=== PATIENT | male | born 1955 | race Caucasian/White ===

== ENCOUNTER 2016-07-11 03:32 | Inpatient (IN) | payer OTHER ==
[~2016-07-11] VITALS: Ht 190.5 cm; Wt 132.4 kg
[~2016-07-11 03:32] MED LIST: BENICAR40 M1 PO
[2016-07-11] MEDS ORDERED: COLACE100 M1 PO (10:56)
[2016-07-11] MEDS ORDERED: MIRALAX17 G1 PO (10:56)
[2016-07-11] MEDS ORDERED: ASPIRIN EC325 M2 PO (10:56)
[2016-07-11] MEDS ORDERED: PRILOSEC OTC20 M1 PO (10:56)
[2016-07-11] MEDS ORDERED: MS CONTIN30 M1 PO (10:56)
[2016-07-11] MEDS ORDERED: DILAUDID2 M1 PO (10:56)
--- NOTE | 2016-07-11 11:03 | Patient Discharge Instructions ---
Discharge Instructions General Discharge Information You were seen/treated for: Right hip pain secondary to osteoarthritis You had these procedures: Right total hip replacement Watch for these problems: Increasing pain despite the use of pain medication. Increasing redness, warmth, swelling. Drainage of any type from incision. Inability to bear weight on right leg. Persistent nausea and vomitting. Fever greater than 101.5 degrees. Do not soak the wound: Yes No bath, but you may shower: Yes Other wound care: Keep wound clean and dry. No ointments of any type on or near incision at any time. No exceptions. Dressing will be changed on the second day following your surgery. Daily dry dressing changes recommended thereafter. Special Instructions: Aspirin: Aspirin 325 mg is to be taken twice daily for four weeks to protect you from the development of blood clots. Please take this with food. Also, please take prilosec daily to help protect your stomach lining while on aspirin. Constipation: Pain medication can be very constipating. Please be sure that you are taking colace and miralax as directed and that you are moving your bowels. If you develop diarrhea, you may stop taking the medications. If you are unable to pass gas or move your bowels, please contact your dr or visit the emergency room. Diet Continue normal diet: Yes Recommended Diet: Regular Additional DIET Information: Advance as tolearated Activity Full Activity/No Limits: No Activity Self Limited: Yes Pounds, do NOT lift more than: 10 Activity Limited to: Weight bear as tolerated Acute Coronary Syndrome Inclusion Criteria At DC or during hospital stay patient has or had the following: ACS DIAGNOSIS No Discharge Core Measures Meds if any: Prescribed or Continued at Discharge Meds if any: NOT Prescribed or Continued at Discharge Congestive Heart Failure Inclusion Criteria At DC or during hospital stay patient has or had the following: CHF DIAGNOSIS No Discharge Core Measures Meds if any: Prescribed or Continued at Discharge Meds if any: NOT Prescribed or Continued at Discharge Cerebrovascular accident Inclusion Criteria At DC or during hospital stay patient has or had the following: CVA/TIA Diagnosis No Discharge Core Measures Meds if any: Prescribed or Continued at Discharge Meds if any: NOT Prescribed or Continued at Discharge Venous thromboembolism Inclusion Criteria VTE Diagnosis No VTE Type NONE VTE Confirmed by (Test) NONE Discharge Core Measures - Per Current guidelines, there needs to be overlap - treatment for the first 5 days of Warfarin therapy. - If discharged on Warfarin prior to 5 days of - overlap therapy, the patient will need to be - assessed for post discharge needs including - *Post discharge parental anticoagulation - *Warfarin and/or parental anticoagulation education - *Follow up date to check INR post discharge At least 5 days overlap therapy as Inpatient No Meds if any: Prescribed or Continued at Discharge Note: Overlap Therapy is Warfarin and Anticoagulant Meds if any: NOT Prescribed or Continued at Discharge
--- NOTE | 2016-07-11 11:04 | Admission Core Measures ---
Admission Meds I reviewed the following Meds: Current Medications Sig/Chelsea Start time Last Medication Dose Stop Time Status Admin Acetaminophen 975 MG ONCE 07/11 0000 NR (Tylenol) 07/11 2358 Cefazolin Sodium 3,000 MG ONCE 07/11 0000 NR (Kefzol-Ancef Inj) 07/11 2358 Losartan Potassium 100 MG DAILY 07/11 1000 AC (Cozaar) Oxycodone HCl 10 MG ONCE 07/11 0000 NR (Roxicodone) 07/11 2358 Acute Coronary Syndrome Inclusion Criteria ACS Diagnosis No Inpatient Core Measures LDL Reminder: If No, please order W/I first 24hr of stay Congestive Heart Failure Inclusion Criteria CHF Diagnosis No Cerebrovascular accident Inclusion Criteria CVA/TIA Diagnosis No Inpatient Core Measures Bedside Swallow Eval Reminder: If BSE failed, place ST order Antithrombotic Reminder: Order Antithrombotic Medication by end of day 2 Antithrombotic Reminder: Document Reason Antithrombotic Not ordered by end of day 2 AFIB/Flutter Reminder: If Present, add to problem list AFIB/Flutter Reminder: Order Anticoag Medication for pts with AFIB/Flutter Atherosclerosis Reminder: If Present, add to problem list LDL Reminder: If No, please order W/I first 24hr of stay PT Order Reminder: If No, please order Venous thromboembolism Inpatient Core Measures VTE Risk Factors: Age > 40, Surgery No [facility] VTE prophylaxis d/t No contraindications No VTE Pharm Prophylaxis d/t No contraindications Inclusion Criteria - Per Current guidelines, there needs to be overlap - treatment for the first 5 days of Warfarin therapy. - Parenteral Anticoagulation (IV or SC) needs to be - given along with Warfarin therapy. VTE Diagnosis No VTE Type NONE VTE Confirmed by (Test) NONE Problem List As ranked by this Provider includes Assessment & Plan 1. Unilateral primary osteoarthritis, right hip HOME MEDS Home Med List Aspirin (Ecotrin*) 325 MG TABLET.DR 1 TAB PO BID ANTICOAGULATION Docusate Sodium (Colace) 100 MG CAPSULE 1 CAP PO BID CONSITPATION Hydromorphone HCl (Dilaudid) 2 MG TABLET 1-2 TAB PO Q4-6 PRN PAIN Morphine Sulfate (Ms Contin) 30 MG TABLET.ER 1 TAB PO BID PAIN Olmesartan Medoxomil (Benicar) 40 MG TABLET 1 TAB PO DAILY HTN (Reported) Omeprazole Magnesium (Prilosec Otc) 20 MG TABLET.DR 1 TAB PO DAILY GI PROTECTION Polyethylene Glycol 3350 (Miralax) 17 GRAM POWD.PACK 1 PAC PO DAILY CONSTIPATION
--- NOTE | 2016-07-11 11:08 | Surgical Discharge Summary ---
Visit Information Visit Dates Admission Date: 07/11/16 Discharge Date: 07/12/2016 History of Present Illness Chief Complaint: Right hip pain related to osteoarthritis Surgical History Pertinent Surgical History: non-contributory Review of Systems: See H&P Hospital Course Course Attending Physician: KASHMIR MARTINEZ MD Primary Care Physician: YASH ROSENTHAL,DONNA Shah III Hospital Course: 07/11/2016 admitted to hospital for an elective right total hip replacement. Tolerated procedure well and was transferred to general surgical floor. There, his vital signs remained stable and within normal limits and his neurovascular status remained intact. His diet was advanced and tolerated. He voided spontaneously. His pain was adequately controlled with po pain medication. He was evaluated and treated by physical therapy and deemed appropriate for discharge. Allergies: Coded Allergies: No Known Allergies (07/09/16) Disposition Summary Disposition Principal Diagnosis: Right hip unilateral primary osteoarthritis Additional Diagnosis: none Discharge Disposition: home health services Discharge Instructions General Discharge Information Code Status: Full Code Patient's Diet: Regular, advance as tolerated Patient's Activity: wbat Follow-Up Instructions/Appts: 6 weeks from date of surgery with Dr. Martinez Medications at Discharge Discharge Medications: Continue taking these medications: Olmesartan Medoxomil (Benicar) 40 MG TABLET 1 Tablet ORAL DAILY Start taking the following new medications: Aspirin (Ecotrin*) 325 MG TABLET.DR 1 Tablet ORAL TWICE DAILY Qty = 60 No Refills Docusate Sodium (Colace) 100 MG CAPSULE 1 Capsule ORAL TWICE DAILY Qty = 14 No Refills Instructions: DISCONTINUE USE IF YOU DEVELOP LOOSE STOOL OR DIARRHEA Polyethylene Glycol 3350 (Miralax) 17 GRAM POWD.PACK 1 Packet ORAL DAILY Qty = 7 No Refills Instructions: dissolve in water, DISCONTINUE USE IF YOU DEVELOP LOOSE STOOL OR DIARRHEA Hydromorphone HCl (Dilaudid) 2 MG TABLET 1-2 Tablet ORAL EVERY 4-6 HOURS as needed for PAIN Qty = 36 No Refills Morphine Sulfate (Ms Contin) 30 MG TABLET.ER 1 Tablet ORAL TWICE DAILY Qty = 6 No Refills Omeprazole Magnesium (Prilosec Otc) 20 MG TABLET.DR 1 Tablet ORAL DAILY Qty = 30 No Refills
--- NOTE | 2016-07-11 13:04 | RADIOLOGY REPORT ---
EXAMINATION: XR HIP, RIGHT CLINICAL INFORMATION: Status post total hip arthroplasty. COMPARISON: None TECHNIQUE: Two views of the right hip. FINDINGS: There are postoperative changes with metallic acetabular and femoral components a single overlying soft tissue drain laterally without evidence of immediate complication or hardware failure. IMPRESSION: Postoperative changes.
[2016-07-11 14:00] VITALS: BP 122/80
--- NOTE | 2016-07-11 14:07 | PN- Orthopedic ---
Subjective Subjective: The patient was seen this afternoon postoperatively. He reports that his pain is under adequate control and has no other complaints at the current time. He has no chest pain or difficulty breathing and is eager to work with physical therapy. Objective Vital Signs and I&Os Vital signs: Blood pressure 118/68, pulse 65, temperature 97.3, O2 saturation 99 % on room air I's and O's: 2000 ML's in of lactated Ringer's/patient has yet to void/VALDEMAR 60/EBL 500 Physical Exam: Gen.: Alert and in no obvious distress Skin: Warm and dry Cardiac: S1-S2 regular Pulmonary: Bilateral breath sounds are equal good exchange Extremities: Bilateral lower extremities are warm without calf tenderness or significant edema. Gross motor and sensory are intact. Right hip surgical dressing is slightly blood tinged but otherwise intact. There is a Hemovac 1 holding suction with dark sanguinous drainage in the bulb Assessment/Plan Assessment/Plan Assessment: 61-year-old male status post right total hip arthroplasty. Postoperative the patient is progressing as expected and his pain is under adequate control. Plan: Out of bed with physical therapy Gentle IV hydration and advance diet as tolerated Continue current pain regiment GI and DVT prophylaxis with first dose of aspirin tonight 2 doses of postoperative prophylactic antibiotics Strict I's and O's and monitor for postoperative void Keep Hemovac to self suction Follow-up morning laboratory studies Resume home medications Core Measures/Miscellaneous Venous Thromboembolism VTE Risk Factors: Age > 40, Surgery VTE Contraindications: No Contraindications VTE Diagnosis: No VTE Type: NONE VTE Confirmed by (Test): NONE Beta Ceci Is Beta Ceci a Home Med? No Antibiotics Is Patient on Antibiotics? Yes If Yes: prophylaxis
--- NOTE | 2016-07-11 15:58 | NUR ---
1400- PT ARRIVED TO FLOOR VIA STRETCHER FROM PACU. PHYSICAL THERAPY AMBULATED PT FROM STRETCHER TO ROOM WITH RW. PT AMBULATED WELL WITH PHY THERAPY. A/V/OX3. DRESSING TO R HIP C,D,I. + PULSES TO R LE. HEMOVAC IN PLACE TO R HIP DRAINING BLOODY DRAINAGE. VSS. ORIENTED TO ROOM AND CALL LIGHT FOR ASSIST.
[2016-07-11 16:04] VITALS: BP 122/80
[2016-07-11 17:54] VITALS: BP 124/64
--- NOTE | 2016-07-11 17:55 | Operative Report ---
Operative/Inv Procedure Report Surgery Date: 07/11/16 Name of Procedure: Right total hip replacement Pre-Operative Diagnosis: Primary right hip DJD Post-Operative Diagnosis: Same Estimated Blood Loss: 500 Surgeon/Parole Supervisor: MICHELLE ROSENTHAL,KASHMIR Dos Santos Anesthesia: block Operative/Procedure Note Note: Description of Procedure: The patient was taken to the operating room and positively identified. After induction of spinal anesthesia and administration of appropriate pre-operative antibiotics, the patient was positioned supine on the operating room table and all bony prominences were well padded. After performing a surgical timeout, the right lower extremity was prepped and draped in the usual sterile fashion. A direct anterior approach was made to the right hip. The incision was carried sharply through superficial soft tissues to the level of the fascia. Meticulous hemostasis was maintained with Bovie electocautery. The fascia over the tensor fascia darrell muscle was opened sharply and the interval between the TFL and the sartorius was entered bluntly taking care to stay lateral to the lateral femoral cutaneous nerve. Retractors were placed around the femoral neck and the pericapsular fat was identified. The ascending branches of the lateral femoral circumflex vessels were identified and carefully coagulated. The pericapsular fat and anterior capsule were then resected. A napkin ring osteotomy was performed and the femoral head was removed without difficulty. Attention was then turned to the acetabulum. After appropriate placement of retractors, the acetabulum was exposed. Soft tissue was cleaned from the acetabular margin and notch. Overhanging osteophytes were removed and the teardrop was exposed. The acetabulum was then sequentially reamed to accept a 64 mm Karin Tritanium hemispherical solid back shell. This was impacted into place in the appropriate position and fitted with a 36 mm Trident X3 zero degree polyethylene insert. Attention was then turned to the femur. After performing the appropriate ligament releases, the proximal femur was exposed. It was then sequentially broached to accept a size 7 Rochelle accolade 2 stem. This was trialed for leg length and stability. The trial component was removed and the final component was impacted into place. The trunnion was carefully cleaned and fit with a 36 mm, +5 Biolox delta ceramic femoral head. The hip was reduced and put through a full range of motion and found to be stable. The articular space was then irrigated with sterile saline. The periarticular soft tissues were infilitrated with Marcaine. The fascial layer was closed with interrupted #1 vicryl suture and the skin was re-approximated with interrupted 2 -0 vicryl. The skin was closed with a running 3-0 V-Lock suture. Steri-strips and a sterile dressing were applied. The patient was awakened and taken to the recovery room in satisfactory condition.
[2016-07-11 20:08] VITALS: BP 120/80
[2016-07-12 00:40] VITALS: BP 128/78
[2016-07-12 04:23] VITALS: BP 130/70
--- NOTE | 2016-07-12 07:21 | PN- Orthopedic ---
Subjective Subjective: Awake, alert oomplaining of pain with ambulation - tolerable with meds voiding without difficulty Tolerating diet Objective Vital Signs and I&Os Vital Signs Date Time Temp Pulse Resp B/P B/P Pulse O2 O2 Flow FiO2 Mean Ox Delivery Rate 07/12 0423 98.7 74 20 130/70 95 Room Air 07/12 0040 98.2 67 20 128/78 96 Room Air 07/12 2007 98.4 82 20 120/80 94 Room Air 07/11 1754 98.1 79 20 124/64 93 Room Air 07/11 1604 97.9 77 20 122/80 96 Room Air 07/11 1400 98.4 64 18 122/80 98 Room Air Intake & Output 07/12 0807/12 0000 07/11 1600 07/11 0807/11 0000 07/10 1600 Intake Total 1300 Output Total 1430 Balance -130 Intake, IV 600 Intake, Oral 700 Output, 250 Drainage Output, Urine 1180 Patient 292 lb Weight Physical Exam: vss, afebrile General: alert and oriented times three Chest: clear anteriorly bilaterally, RRR Abd: soft, good bs Ext: warm, no edema, positive sensate, no calf tenderness Wound: dressed, dry hemovac removed - slight oozing behind the drain. Assessment/Plan Assessment/Plan 61yo male pod 1 s/p R THR PT - wbat asa 325mg po bid for dvt ppx pain mgmt dc later if cleared by PT Core Measures/Miscellaneous Venous Thromboembolism VTE Risk Factors: Age > 40, Surgery VTE Contraindications: No Contraindications VTE Diagnosis: No VTE Type: NONE VTE Confirmed by (Test): NONE Beta Ceci Is Beta Ceci a Home Med? No Antibiotics Is Patient on Antibiotics? Yes If Yes: prophylaxis
[2016-07-12 07:59] VITALS: BP 120/60
[2016-07-12 08:34] LABS: ABSOLUTE BASOPHIL COUNT 0 /CUMM (0.0-0.2); ABSOLUTE EOSINOPHIL COUNT 0 /CUMM (0.0-0.7); ABSOLUTE GRANULOCYTE CT 8.4 /CUMM (1.4-6.5); ABSOLUTE LYMPH COUNT 1.1 /CUMM (1.2-3.4); ABSOLUTE MONOCYTE COUNT 1.1 /CUMM (0.10-0.60); BASOPHIL % 0.2 % (0.0-2.0); EOSINOPHIL % 0.1 % (0-5); GRANULOCYTE % 79.6 % (42.2-75.2); MEAN CORPUSCULAR VOLUME 91.2 FL (80.0-94.0); MEAN PLATELET VOLUME 7.9 FL (7.4-10.4); PLATELET COUNT 171 /CUMM (130-400); RBC DISTRIBUTION WIDTH 13.3 % (11.5-14.5); RED BLOOD CELL CT 3.83 /CUMM (4.70-6.10); WHITE BLOOD CELL COUNT 10.6 /CUMM (4.8-10.8)
[2016-07-12 12:06] VITALS: BP 130/60
== END 2016-07-12 14:09 | disposition home health service (06) | DRG 470 ==
LOC: SDA 03:32 → ENRESERV 12:20 → 2NA 13:55 → ENPENDDIS 07-12 10:47 → 2NA 07-12 14:09
PROVIDERS: Nurse Practitioner; ADMIT Orthopaedic Surgery
PROC: 0SR904A Replacement of Right Hip Joint with Ceramic on Polyethylene Synthetic Substitute, Uncemented, Open Approach (ICD-10-PCS; principal; 2016-07-11)
DX: M16.11 Unilateral primary osteoarthritis, right hip (principal); E66.9 Obesity, unspecified; I10 Essential (primary) hypertension; Z68.36 Body mass index [BMI] 36.0-36.9, adult; G47.33 Obstructive sleep apnea (adult) (pediatric)
CPT/HCPCS: 2NAP; 73502-RT; 82436; 88304; 97116-GO; 97161-GP; 97530-GO; J0131; J0690; J0735; J2405; J2550; J3490; J7042